=== PATIENT | female | born 1975 | race Caucasian/White ===

== ENCOUNTER → 2021-08-18 | Outpatient (CLI) | payer BC ==
[~2021-08-18] MED LIST: CEPHALEXIN500 M1 PO
== END ==
LOC: MC.RAD 07:00
DX: N63.25 Unspecified lump in the left breast, overlapping quadrants (principal)

== ENCOUNTER → 2021-09-12 | Outpatient (CLI) | payer BC | LOC: MC.RAD 07:47 | DX: N60.02 Solitary cyst of left breast (principal) ==